=== PATIENT | male | born 2005 | race African-American/Black ===

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

== ENCOUNTER 2023-01-04 21:49 | Emergency (ER) | payer OTHER ==
[~2023-01-04] VITALS: Ht 195.6 cm; Wt 88.0 kg
[~2023-01-04 21:49] MED LIST changes: -ALBU8.5H8 IH
[2023-01-04 21:54] VITALS: BP 132/71
[2023-01-04] MEDS ORDERED: ALBUTEROL SULFATE 2.5 MG/0.5 ML NEB SOLUTION NEB ONE (22:00)
[2023-01-04] MEDS ORDERED: IPRATROPIUM BROMIDE 0.5 MG/2.5 ML NEB SOLUTION NEB ONE (22:00)
[2023-01-04] MEDS ORDERED: PredniSONE 20 MG TABLET PO ONE (22:15)
[2023-01-05] MEDS ORDERED: AZIT250T9 PO (00:01)
[2023-01-05] MEDS ORDERED: ALBU8HFA IH (00:01)
[2023-01-05] MEDS ORDERED: PRED-554 PO (00:01)
== END 2023-01-05 00:34 | disposition home or self-care (01) ==
LOC: EMS 22:36
DX: J45.909 Unspecified asthma, uncomplicated (principal); Z91.09 Other allergy status, other than to drugs and biological substances
CPT/HCPCS: 99283; 94640; J7512

== ENCOUNTER 2023-01-16 23:32 | Emergency (ER) | payer OTHER ==
[~2023-01-16] VITALS: Ht 195.6 cm; Wt 86.0 kg
[2023-01-17] MEDS ORDERED: MethylPREDNISolone SOD SUCC 125 MG/2 ML VIAL IVP ONE
[2023-01-17] MEDS ORDERED: IPRATROPIUM BROMIDE 0.5 MG/2.5 ML NEB SOLUTION NEB ONE
[2023-01-17] MEDS ORDERED: EPINEPHrine 1:1,000 [1 MG/ML] VIAL IM ONE
[2023-01-17] MEDS ORDERED: ALBUTEROL SULFATE 2.5 MG/0.5 ML NEB SOLUTION NEB ONE
[2023-01-17] MEDS ORDERED: SODIUM CHLORIDE 0.9% 1,000 ML IV ONE
[2023-01-17 02:00] VITALS: BP 129/77
== END 2023-01-17 03:00 | disposition home or self-care (01) ==
LOC: EMS 23:34
DX: J45.909 Unspecified asthma, uncomplicated (principal); Z91.09 Other allergy status, other than to drugs and biological substances
CPT/HCPCS: 99284; 96374; 96361; 94640; 96372; J0171; J2930; J7030; J7613

== ENCOUNTER 2023-01-27 08:48 | Emergency (ER) | payer OTHER ==
[~2023-01-27] VITALS: Ht 195.6 cm; Wt 88.6 kg
[2023-01-27] MEDS ORDERED: PredniSONE 20 MG TABLET PO ONE (09:30)
[2023-01-27] MEDS ORDERED: ALBUTEROL SULFATE 2.5 MG/0.5 ML NEB SOLUTION NEB ONE (09:30)
[2023-01-27] MEDS ORDERED: IPRATROPIUM BROMIDE 0.5 MG/2.5 ML NEB SOLUTION NEB ONE (09:30)
[2023-01-27] MEDS ORDERED: EPINEPHrine 1:1,000 [1 MG/ML] VIAL IM ONE (09:45)
[2023-01-27] MEDS ORDERED: ALBU8HFA IH (10:41)
[2023-01-27] MEDS ORDERED: PRED-554 PO (10:41)
[2023-01-27 10:54] VITALS: BP 116/78
== END 2023-01-27 11:13 | disposition home or self-care (01) ==
LOC: EMS 08:56
DX: J45.909 Unspecified asthma, uncomplicated (principal); F17.210 Nicotine dependence, cigarettes, uncomplicated; Z91.09 Other allergy status, other than to drugs and biological substances
CPT/HCPCS: 99291; 94640; 96372; J0171; J7512

== ENCOUNTER 2023-02-19 08:47 | Emergency (ER) | payer OTHER ==
[~2023-02-19] VITALS: Ht 195.6 cm; Wt 81.8 kg
[~2023-02-19 08:47] MED LIST changes: +ALBU18HF12 IH; -ALBU8HFA IH
[2023-02-19] MEDS ORDERED: ALBU18HF12 IH (10:13)
[2023-02-19] MEDS ORDERED: PRED-554 PO (10:13)
[2023-02-19] MEDS ORDERED: GUAIFDM PO (10:13)
[2023-02-19] MEDS ORDERED: BECL10.62 IH (10:13)
[2023-02-19] MEDS ORDERED: ALBUTEROL SULFATE 2.5 MG/0.5 ML NEB SOLUTION NEB ONE (10:15)
[2023-02-19] MEDS ORDERED: IPRATROPIUM BROMIDE 0.5 MG/2.5 ML NEB SOLUTION NEB ONE (10:15)
[2023-02-19] MEDS ORDERED: PredniSONE 20 MG TABLET PO ONE (10:15)
[2023-02-19] MEDS ORDERED: 0.9% SODIUM CHLORIDE 5 ML NEB SOLUTION NEB ONE (10:32)
[2023-02-19] MEDS ORDERED: ALBUTEROL SULFATE HFA 90 MCG/PUFF 8 GM INHALER IH ONE (10:45)
[2023-02-19 11:45] VITALS: BP 104/82
== END 2023-02-19 11:46 | disposition home or self-care (01) ==
LOC: EMS 08:54
DX: J45.901 Unspecified asthma with (acute) exacerbation (principal); F17.210 Nicotine dependence, cigarettes, uncomplicated
CPT/HCPCS: 94060; 99283; 94640; J7512; J3535

== ENCOUNTER 2023-08-11 12:36 | Emergency (ER) | payer OTHER ==
[~2023-08-11] VITALS: Ht 195.6 cm; Wt 95.5 kg
[~2023-08-11 12:36] MED LIST changes: +BECL10.62 IH; +GUAIFDM PO
[2023-08-11 12:52] VITALS: BP 124/72; PULSE 88; RESP 16; TEMP 97.9
[2023-08-11] MEDS ORDERED: ALBUTEROL SULFATE HFA 90 MCG/PUFF 8 GM INHALER IH ONE (14:15)
[2023-08-11] MEDS ORDERED: PredniSONE 20 MG TABLET PO ONE (14:15)
[2023-08-11] MEDS ORDERED: PRED-554 PO (15:05)
== END 2023-08-11 15:20 | disposition home or self-care (01) ==
LOC: EMS 12:36
DX: J45.901 Unspecified asthma with (acute) exacerbation (principal); F17.210 Nicotine dependence, cigarettes, uncomplicated; Z91.048 Other nonmedicinal substance allergy status
CPT/HCPCS: 99283; 94640; J7512; J3535

== ENCOUNTER 2023-09-06 05:40 | Emergency (ER) | payer OTHER ==
[~2023-09-06] VITALS: Ht 195.6 cm; Wt 92.7 kg
[2023-09-06 05:47] VITALS: TEMP 97.9
[2023-09-06 06:27] VITALS: PULSE 77; RESP 19; O2SAT 94
[2023-09-06] MEDS ORDERED: SODIUM CHLORIDE 0.9% 500 ML IV ONE (06:30)
[2023-09-06] MEDS ORDERED: MethylPREDNISolone SOD SUCC 125 MG/2 ML VIAL IVP ONE (06:30)
[2023-09-06] MEDS ORDERED: ALBUTEROL SULFATE 2.5 MG/0.5 ML NEB SOLUTION NEB ONE (06:30)
[2023-09-06] MEDS ORDERED: IPRATROPIUM BROMIDE 0.5 MG/2.5 ML NEB SOLUTION NEB ONE (06:30)
[2023-09-06 06:42] VITALS: PULSE 68; RESP 16; O2SAT 100
[2023-09-06] MEDS ORDERED: PRED-554 PO (07:06)
[2023-09-06] MEDS ORDERED: ALBU18HF12 IH (07:07)
[2023-09-06] MEDS ORDERED: ALBUTEROL SULFATE HFA 90 MCG/PUFF 8 GM INHALER IH ONE (07:15)
[2023-09-06 07:25] VITALS: BP 137/69; PULSE 79; RESP 15
== END 2023-09-06 07:38 | disposition home or self-care (01) ==
LOC: EMS 05:41
DX: J45.901 Unspecified asthma with (acute) exacerbation (principal); F17.210 Nicotine dependence, cigarettes, uncomplicated
CPT/HCPCS: 99285; 96374; 96361; 94640; J2930; J7040; J3535; J7613

== ENCOUNTER 2023-10-01 01:54 | Emergency (ER) | payer OTHER ==
[~2023-10-01] VITALS: Ht 185.4 cm; Wt 92.0 kg
[2023-10-01] MEDS ORDERED: ALBUTEROL SULFATE HFA 90 MCG/PUFF 8 GM INHALER IH ONE (02:30)
[2023-10-01 02:41] VITALS: BP 117/60; PULSE 77; RESP 18; TEMP 98.1
[2023-10-01] MEDS ORDERED: PRED-554 PO (03:06)
[2023-10-01] MEDS ORDERED: PredniSONE 20 MG TABLET PO ONE (03:15)
== END 2023-10-01 03:11 | disposition home or self-care (01) ==
LOC: EMS 01:55
DX: J45.901 Unspecified asthma with (acute) exacerbation (principal); F17.210 Nicotine dependence, cigarettes, uncomplicated
CPT/HCPCS: 99283; J7512; J3535; 94640

== ENCOUNTER 2023-12-05 23:37 | Emergency (ER) | payer OTHER ==
[~2023-12-05] VITALS: Ht 195.6 cm; Wt 93.0 kg
[2023-12-06 00:10] VITALS: TEMP 98.4
[2023-12-06 02:16] VITALS: BP 129/77
[2023-12-06] MEDS: PredniSONE 20 MG TABLET PO ONE (02:38)
[2023-12-06] MEDS: ALBUTEROL SULFATE 2.5 MG/0.5 ML NEB SOLUTION NEB ONE (02:52)
[2023-12-06] MEDS: IPRATROPIUM BROMIDE 0.5 MG/2.5 ML NEB SOLUTION NEB ONE (02:52)
[2023-12-06 02:55] VITALS: PULSE 101; RESP 18; O2SAT 93
[2023-12-06] MEDS ORDERED: ALBU18HF12 IH (03:55)
[2023-12-06] MEDS ORDERED: PRED-554 PO (03:55)
== END 2023-12-06 05:12 | disposition home or self-care (01) ==
LOC: EMS 23:37
DX: J45.901 Unspecified asthma with (acute) exacerbation (principal)
CPT/HCPCS: 99284; 94640; J7512

== ENCOUNTER 2024-01-07 01:38 | Emergency (ER) | payer OTHER ==
[~2024-01-07] VITALS: Ht 195.6 cm; Wt 90.9 kg
[2024-01-07 02:06] VITALS: TEMP 98.4
[2024-01-07] MEDS: ALBUTEROL SULFATE HFA 90 MCG/PUFF 8 GM INHALER IH ONE (02:20)
[2024-01-07] MEDS: PredniSONE 20 MG TABLET PO ONE (02:23)
[2024-01-07 02:33] VITALS: BP 119/62; PULSE 74; RESP 18
[2024-01-07] MEDS ORDERED: ALBU18HF12 IH (02:52)
== END 2024-01-07 03:02 | disposition home or self-care (01) ==
LOC: EMS 01:38
DX: J45.901 Unspecified asthma with (acute) exacerbation (principal)
CPT/HCPCS: 99283; 71045; 94640; J7512; J3535

== ENCOUNTER 2024-06-24 12:57 | Emergency (ER) | payer MEDICAID, OTHER ==
[~2024-06-24] VITALS: Ht 195.6 cm; Wt 97.0 kg
[2024-06-24 13:02] VITALS: TEMP 97.8
[2024-06-24] MEDS ORDERED: ALBU18HF7 IH (14:55)
[2024-06-24 15:51] VITALS: BP 128/76; PULSE 67; RESP 14
== END 2024-06-24 15:51 | disposition home or self-care (01) ==
LOC: EMS 12:57
DX: J45.909 Unspecified asthma, uncomplicated (principal); Z76.0 Encounter for issue of repeat prescription
CPT/HCPCS: 99281; Z7502

== ENCOUNTER 2024-08-01 22:00 | Emergency (ER) | payer MEDICAID ==
[~2024-08-01] VITALS: Ht 195.6 cm; Wt 100.0 kg
[~2024-08-01 22:00] MED LIST changes: +ALBU18HF7 IH
[2024-08-01 22:14] VITALS: TEMP 97.8
[2024-08-01] MEDS ORDERED: IPRATROPIUM BROMIDE 0.5 MG/2.5 ML NEB SOLUTION NEB ONE (22:21)
[2024-08-01] MEDS ORDERED: ALBUTEROL SULFATE 2.5 MG/0.5 ML NEB SOLUTION NEB ONE (22:21)
[2024-08-01] MEDS: IPRATROPIUM BROMIDE 0.5 MG/2.5 ML NEB SOLUTION NEB ONE (22:23)
[2024-08-01] MEDS: ALBUTEROL SULFATE 2.5 MG/0.5 ML NEB SOLUTION NEB ONE (22:23)
[2024-08-01 22:39] VITALS: BP 126/75; PULSE 66; RESP 18; O2SAT 99
== END 2024-08-02 00:41 | disposition left against medical advice (07) ==
LOC: EMS 22:00
DX: R06.02 Shortness of breath (principal); Z53.21 Procedure and treatment not carried out due to patient leaving prior to being seen by health care provider
CPT/HCPCS: 71045; J7613

== ENCOUNTER → 2024-08-31 23:11 | Emergency (ER) | payer MEDICAID, OTHER ==
[~2024-08-31] VITALS: Ht 195.6 cm; Wt 106.0 kg
[2024-08-31 00:49] VITALS: TEMP 98.7
[2024-08-31] MEDS: LIDOCAINE 5% TRANSDERMAL PATCH TD ONE (01:21)
[2024-08-31] MEDS: METHOCARBAMOL 500 MG TABLET PO ONE (01:21)
[2024-08-31] MEDS: ACETAMINOPHEN 325 MG TABLET PO ONE (01:22)
[2024-08-31] MEDS: KETOROLAC TROMETHAMINE 30 MG/ML VIAL IM ONE (01:22)
[2024-08-31 01:54] VITALS: BP 121/69; PULSE 68; RESP 16; O2SAT 100
[~2024-08-31 23:11] MED LIST changes: +METH-812 PO
== END | disposition left against medical advice (07) ==
LOC: EMS 08-30 23:11
DX: M54.6 Pain in thoracic spine (principal); M54.2 Cervicalgia
CPT/HCPCS: 99284; 96372; J1885

== ENCOUNTER 2024-09-06 09:53 | Emergency (ER) | payer OTHER ==
[~2024-09-06] VITALS: Ht 190.5 cm; Wt 95.5 kg
[2024-09-06 10:00] VITALS: TEMP 98.4
[2024-09-06] MEDS: ALBUTEROL SULFATE 2.5 MG/0.5 ML 5 ML NEB SOLUTION NEB ONE (10:07)
[2024-09-06] MEDS: IPRATROPIUM BROMIDE 0.5 MG/2.5 ML NEB SOLUTION NEB ONE (10:09)
[2024-09-06] MEDS: SODIUM CHLORIDE 0.9% 1,000 ML IV ONE (10:12)
[2024-09-06] MEDS: MethylPREDNISolone SOD SUCC 125 MG/2 ML VIAL IVP ONE (10:13)
[2024-09-06 10:16] LABS: COVID AG,FIA SOURCE NASAL SWAB
[2024-09-06 10:18] LABS: BASOPHILS % (AUTO) 0.6 % (0.0-2.0); EOSINOPHILS % (AUTO) 13.9 % (1.0-6.0); HEMATOCRIT 47.9 % (41-53); HEMOGLOBIN 15.6 g/dL (13.5-17.5); LYMPHOCYTES # (AUTO) 1.3 K/uL (1.0-4.8); LYMPHOCYTES % (AUTO) 23.8 % (22.0-44.0); MEAN CORPUSCULAR HEMOGLOBIN 26.9 pg (26.0-34.0); MEAN CORPUSCULAR HGB CONC 32.6 G/dL (31.0-37.0); MEAN CORPUSCULAR VOLUME 83 fL (80-100); MONOCYTES # (AUTO) 0.6 K/uL (0.1-1.0); MONOCYTES % (AUTO) 10.4 % (2.0-9.0); NEUTROPHILS # (AUTO) 2.7 K/uL (1.8-7.7); NEUTROPHILS % (AUTO) 51.3 % (40.0-70.0); PLATELET COUNT (AUTO) 260 K/uL (150-450); RED BLOOD CELL COUNT(AUTO) 5.79 MIL/uL (4.50-5.90); RED CELL DISTRIBUTION WIDTH 13.2 % (11.5-14.5); WHITE BLOOD COUNT (AUTO) 5.3 K/uL (4.5-11.0)
[2024-09-06 10:30] LABS: CHLORIDE 103 mmol/L (98-107); POTASSIUM 3.8 mmol/L (3.5-5.1)
[2024-09-06 10:38] LABS: ANION GAP 9 mmol/L (8-16); CALCIUM, TOTAL 8.9 mg/dL (8.8-10.5); CARBON DIOXIDE 26 mmol/L (22-29); CREATININE 0.82 mg/dL (0.60-1.30); GLOMERULAR FILTR. RATE CALC > 60 mL/min (>60); GLUCOSE,RANDOM 92 mg/dL (70-110); SODIUM SERUM 138 mmol/L (136-145); UREA NITROGEN, BLOOD 12 mg/dL (7-18)
[2024-09-06 10:42] LABS: INFLUENZA TYPE A NEGATIVE FOR TYPE A (NEGATIVE); INFLUENZA TYPE B NEGATIVE FOR TYPE B (NEGATIVE)
[2024-09-06 10:43] LABS: SARS-COV2 (COVID) ANTIGEN,FIA Negative (Negative)
[2024-09-06 11:00] VITALS: PULSE 84; PULSE 86; RESP 18; O2SAT 94; O2SAT 95
[2024-09-06 11:00] LABS: TROPONIN I-HIGH SENSITIVITY 5 ng/L (<76)
[2024-09-06 11:04] LABS: ALANINE AMINOTRANSFERASE 24 U/L (12-78); ALKALINE PHOSPHATASE 68 U/L (46-116); ASPARTATE AMINOTRANSFERASE 17 U/L (15-37); B-TYPE NATRIURETIC PEPTIDE 17 pg/mL (0-100); BILIRUBIN,TOTAL 0.4 mg/dL (0.1-1.0); CREATINE KINASE, TOTAL ONLY 170 U/L (39-308); TOTAL PROTEIN, SERUM 7.3 g/dL (6.4-8.2)
[2024-09-06 12:11] VITALS: BP 158/80; O2SAT 100
[2024-09-06 12:30] VITALS: PULSE 85; RESP 16; O2SAT 95
[2024-09-06] MEDS: ALBUTEROL SULFATE HFA 90 MCG/PUFF 8 GM INHALER IH ONE (12:30)
== END 2024-09-06 12:32 | disposition home or self-care (01) ==
LOC: EMS 09:53
DX: J45.901 Unspecified asthma with (acute) exacerbation (principal); Z20.822 Contact with and (suspected) exposure to COVID-19
CPT/HCPCS: 99285; 96374; 71045; 96361; 87426; 80053; 82550; 83735; 83880; 84484; 85025; 87804; 36415; 94644; 93005; J2919; J7030; J3535

== ENCOUNTER 2024-09-17 19:54 | Emergency (ER) | payer OTHER ==
[~2024-09-17] VITALS: Ht 195.6 cm; Wt 100.0 kg
[~2024-09-17 19:54] MED LIST changes: -ALBU18HF12 IH; -ALBU18HF7 IH; -BECL10.62 IH; -GUAIFDM PO; -METH-812 PO
[2024-09-17 20:39] VITALS: BP 120/65; PULSE 71; RESP 19; TEMP 97.3; O2SAT 97
[2024-09-17] MEDS: ALBUTEROL SULFATE HFA 90 MCG/PUFF 8 GM INHALER IH ONE (20:51)
== END 2024-09-17 21:21 | disposition home or self-care (01) ==
LOC: EMS 19:54
DX: J45.901 Unspecified asthma with (acute) exacerbation (principal); Z76.0 Encounter for issue of repeat prescription
CPT/HCPCS: 99283; 94640; J3535

== ENCOUNTER 2024-09-25 06:39 | Emergency (ER) | payer OTHER ==
[~2024-09-25] VITALS: Ht 195.6 cm; Wt 100.0 kg
[2024-09-25] MEDS ORDERED: PredniSONE 20 MG TABLET PO ONE (06:45)
[2024-09-25] MEDS: IPRATROPIUM BROMIDE 0.5 MG/2.5 ML NEB SOLUTION NEB ONE (06:52)
[2024-09-25] MEDS: ALBUTEROL SULFATE 2.5 MG/0.5 ML 5 ML NEB SOLUTION NEB ONE (06:52)
[2024-09-25 06:56] VITALS: PULSE 90; RESP 20; O2SAT 95
[2024-09-25] MEDS: MethylPREDNISolone SOD SUCC 125 MG/2 ML VIAL IVP ONE (07:00)
[2024-09-25 07:21] VITALS: TEMP 97.5
[2024-09-25 07:56] VITALS: PULSE 75; RESP 18; O2SAT 99
[2024-09-25 09:00] VITALS: BP 120/69; O2SAT 97
[2024-09-25 09:08] VITALS: PULSE 94; RESP 18; O2SAT 94
[2024-09-25] MEDS: ALBUTEROL SULFATE HFA 90 MCG/PUFF 8 GM INHALER IH ONE (09:08)
== END 2024-09-25 09:16 | disposition home or self-care (01) ==
LOC: EMS 06:39 → EDUNIT# 06:39 → EMS 09:16
DX: J45.901 Unspecified asthma with (acute) exacerbation (principal); Z79.52 Long term (current) use of systemic steroids; Z91.048 Other nonmedicinal substance allergy status
CPT/HCPCS: 99285; 96374; 94644; J2919; J3535; 94640

== ENCOUNTER 2024-10-08 14:42 | Emergency (ER) | payer OTHER ==
[~2024-10-08] VITALS: Ht 195.6 cm; Wt 100.0 kg
[2024-10-08] MEDS ORDERED: inhaler IN (14:46)
[2024-10-08 14:48] VITALS: TEMP 96.7
[2024-10-08] MEDS ORDERED: ALBU18HF12 IH ×2 (15:33→16:02)
[2024-10-08 15:40] VITALS: PULSE 78; RESP 16; O2SAT 96
[2024-10-08] MEDS: ALBUTEROL SULFATE 2.5 MG/0.5 ML NEB SOLUTION NEB ONE (15:40)
[2024-10-08] MEDS: IPRATROPIUM BROMIDE 0.5 MG/2.5 ML NEB SOLUTION NEB ONE (15:40)
[2024-10-08 15:55] VITALS: PULSE 88; RESP 18; O2SAT 96
[2024-10-08] MEDS: DEXAMETHASONE SOD PHOS 4 MG/ML 5 ML VIAL IM ONE (15:55)
[2024-10-08] MEDS ORDERED: METH4TAB3 PO (16:02)
[2024-10-08 16:31] VITALS: BP 118/74; PULSE 91; RESP 18; O2SAT 96
== END 2024-10-08 16:33 | disposition home or self-care (01) ==
LOC: EMS 14:42
DX: J45.901 Unspecified asthma with (acute) exacerbation (principal)
CPT/HCPCS: 99283; 94640; 96372; J1100

== ENCOUNTER 2024-11-28 15:44 | Emergency (ER) | payer OTHER ==
[~2024-11-28] VITALS: Ht 195.6 cm; Wt 100.0 kg
[~2024-11-28 15:44] MED LIST changes: +ALBU18HF12 IH; +METH4TAB3 PO; -PRED-554 PO
[2024-11-28] MEDS: ALBUTEROL SULFATE HFA 90 MCG/PUFF 8 GM INHALER IH ONE ×2 (16:19→16:20)
[2024-11-28 16:20] VITALS: PULSE 86; RESP 18; O2SAT 99
[2024-11-28 16:28] VITALS: BP 111/63; PULSE 86; RESP 18; TEMP 97.8; O2SAT 99
== END 2024-11-28 16:41 | disposition home or self-care (01) ==
LOC: EMS 15:44
DX: J45.901 Unspecified asthma with (acute) exacerbation (principal); Z76.0 Encounter for issue of repeat prescription
CPT/HCPCS: 99283; 94640; J3535